=== PATIENT | female | born 1940 | race Caucasian/White ===

== ENCOUNTER 2020-12-16 14:48 | Inpatient (IN) | payer OTHER ==
[2020-12-16 16:19] LABS: ALBUMIN 2.8 g/dL (3.4-5.0); BILIRUBIN - TOTAL 0.3 mg/dL (0.2-1.0); BUN/CREAT RATIO (CALC) 13.3 RATIO; CREATININE 0.98 mg/dL (0.51-0.95); GLOBULIN (CALCULATION) 4.1 g/dL; POTASSIUM 3.5 mmol/L (3.5-5.1); TOTAL PROTEIN 6.9 g/dL (6.4-8.2)
[2020-12-16 16:21] LABS: INR 1.09 (0.9-1.2); PROTHROMBIN TIME 13.4 SECONDS (11.4-13.6); PTT 27.5 SECONDS (22.2-34.7)
[2020-12-16 16:48] LABS: BASOPHIL 1.5 % (0-2); EOSINOPHIL 4.6 % (0-7); HCT 37.4 % (37.0-47.0); HGB 11.4 g/dl (12.5-16.0); LYMPHOCYTE 10.6 % (15-48); MCHC 30.5 g/dL (32.0-36.0); MCV 85.2 fL (78.0-100.0); MPV 10.5 fL (6.0-9.5); NRBC 0; PLT 393 K/uL (150-400); RBC 4.39 M/uL (4.20-5.40); RDW 16.7 % (11.5-14.0); WBC 9.6 K/uL (4.0-10.5)
[2020-12-16 18:13] LABS: BILIRUBIN NEGATIVE (NEGATIVE); BLOOD NEGATIVE Ery/uL (NEGATIVE); CLARITY HAZY (CLEAR); COLOR YELLOW (YELLOW); GLUCOSE (U) NORMAL (NORMAL); LEUKOCYTES NEGATIVE Leu/uL (NEGATIVE); NITRITE NEGATIVE (NEGATIVE); PROTEIN TRACE (LOW) mg/dL (NEGATIVE); SPECIFIC GRAVITY >=1.030 (1.001-1.030); UROBILINOGEN 0.2 mg/dL (0.2-1.0)
[2020-12-16 18:15] LABS: SQUAMOUS EPITHELIAL CELLS RARE
[2020-12-17 06:23] LABS: BASOPHIL 1.4 % (0-2); EOSINOPHIL 6.1 % (0-7); HCT 35.4 % (37.0-47.0); LYMPHOCYTE 15.3 % (15-48); MCH 25.9 pg (25.0-31.0); MCHC 31.1 g/dL (32.0-36.0); MCV 83.3 fL (78.0-100.0); MONOCYTE 12.5 % (0-12); MPV 10.6 fL (6.0-9.5); NEUTROPHIL 64.5 % (41-80); NRBC 0; PLT 355 K/uL (150-400); RBC 4.25 M/uL (4.20-5.40); RDW 16.9 % (11.5-14.0); WBC 8.9 K/uL (4.0-10.5)
[2020-12-17 06:54] LABS: BUN/CREAT RATIO (CALC) 10.8 RATIO; CREATININE 1.02 mg/dL (0.51-0.95); POTASSIUM 3.1 mmol/L (3.5-5.1)
[2020-12-17] MEDS ORDERED: ALLOPURINOL100 MG PO (08:43)
[2020-12-17] MEDS ORDERED: AMIODARONE HCL200 MG PO (08:44)
[2020-12-17] MEDS ORDERED: NORVASC5 MG PO (08:44)
[2020-12-17] MEDS ORDERED: LIPITOR40 MG PO (08:45)
[2020-12-17] MEDS ORDERED: PLAVIX75 MG PO (08:46)
[2020-12-17] MEDS ORDERED: DIAZEPAM 2MG TAB2 MG PO (08:46)
[2020-12-17] MEDS ORDERED: LINZESS145 MCG PO (08:53)
[2020-12-17] MEDS ORDERED: AMARYL 2MG TABLE2 MG PO (08:53)
[2020-12-17] MEDS ORDERED: MELATONIN5 M2 PO (08:54)
[2020-12-17] MEDS ORDERED: TOPROL XL 25MG25 MG PO (08:55)
[2020-12-17] MEDS ORDERED: NITROFURANTOIN100 M2 PO (08:56)
[2020-12-17] MEDS ORDERED: PANTOPRAZOLE SO40 MG PO (08:57)
[2020-12-17] MEDS ORDERED: SEROQUEL 25MG T25 MG PO (08:58)
[2020-12-17] MEDS ORDERED: VENLAFAXINE HCL75 MG PO (08:59)
[2020-12-17] MEDS ORDERED: SENNA8.6 MG PO (09:02)
--- NOTE | 2020-12-17 16:40 | NUR ---
NATHANIEL ASKED TO SPEAK WITH PT. REGARDING PT. CHOICE OF PLACEMENT FOR REHAB. PT. DAUGHTER HAD ADVISED NATHANIEL THAT SHE WOULD LIKE HER MOTHER [facility]. ADVISED PT. OF THIS INFORMATION. SHE AGREED THAT SHE WOULD GO TO [facility]. PT. SIGNED CHOICE FORM AND AFFLIATIONS WERE EXPLAINED.
[2020-12-18 07:19] LABS: BUN/CREAT RATIO (CALC) 9.2 RATIO; CREATININE 1.09 mg/dL (0.51-0.95); POTASSIUM 3.4 mmol/L (3.5-5.1)
[2020-12-18] MEDS ORDERED: LOPRESSOR25 MG PO (10:16)
[2020-12-18] MEDS ORDERED: ASPIRIN EC81 MG PO (10:16)
[2020-12-18] MEDS ORDERED: FUROSEMIDE 40MG40 MG PO (10:16)
[2020-12-18] MEDS ORDERED: DIAZEPAM 2MG TAB2 MG PO (10:21)
== END 2020-12-18 15:12 | DRG 291 ==
LOC: FER 14:48 → FMS 19:09
PROVIDERS: Emergency Medicine; Nurse Practitioner; ADMIT Allergy & Immunology Allergy
DX: I11.0 Hypertensive heart disease with heart failure (principal); I50.31 Acute diastolic (congestive) heart failure; I69.351 Hemiplegia and hemiparesis following cerebral infarction affecting right dominant side; I48.0 Paroxysmal atrial fibrillation; F03.90 Unspecified dementia, unspecified severity, without behavioral disturbance, psychotic disturbance, mood disturbance, and anxiety; Z20.822 Contact with and (suspected) exposure to COVID-19; F41.1 Generalized anxiety disorder; M19.90 Unspecified osteoarthritis, unspecified site; E78.5 Hyperlipidemia, unspecified; F32.9 Major depressive disorder, single episode, unspecified; I65.29 Occlusion and stenosis of unspecified carotid artery; I25.10 Atherosclerotic heart disease of native coronary artery without angina pectoris; Z95.1 Presence of aortocoronary bypass graft; Z90.49 Acquired absence of other specified parts of digestive tract; Z95.5 Presence of coronary angioplasty implant and graft; Z79.84 Long term (current) use of oral hypoglycemic drugs; Z99.81 Dependence on supplemental oxygen; Z98.890 Other specified postprocedural states
CPT/HCPCS: 36415; 70450; 70551; 71045; 80048; 80053; 80061; 81001; 82550; 83880; 84484; 85025; 85610; 85730; 87088; 92507; 93005; 97110; 97162; 97166; 97530-GP; 97535; J1650; J1940; U0002

== ENCOUNTER 2021-01-28 02:47 | Inpatient (IN) | payer OTHER ==
[~2021-01-28 02:47] MED LIST: ALLOPURINOL100 MG PO; AMARYL 2MG TABLE2 MG PO; AMIODARONE HCL200 MG PO; ASPIRIN EC81 MG PO; DIAZEPAM 2MG TAB2 MG PO; FUROSEMIDE 40MG40 MG PO; LINZESS145 MCG PO; LIPITOR40 MG PO; LOPRESSOR25 MG PO; MELATONIN5 M2 PO; NITROFURANTOIN100 M2 PO; NORVASC5 MG PO; PANTOPRAZOLE SO40 MG PO; PLAVIX75 MG PO; SENNA8.6 MG PO; SEROQUEL 25MG T25 MG PO; TOPROL XL 25MG25 MG PO; VENLAFAXINE HCL75 MG PO
[2021-01-28 03:27] LABS: BASOPHIL 0.3 % (0-2); EOSINOPHIL 0.3 % (0-7); HCT 34.7 % (37.0-47.0); HGB 11.3 g/dl (12.5-16.0); LYMPHOCYTE 4.4 % (15-48); MCHC 32.6 g/dL (32.0-36.0); MCV 79.8 fL (78.0-100.0); MONOCYTE 6.4 % (0-12); MPV 10.5 fL (6.0-9.5); NEUTROPHIL 88.3 % (41-80); NRBC 0; PLT 272 K/uL (150-400); RBC 4.35 M/uL (4.20-5.40); RDW 17.3 % (11.5-14.0); WBC 14.4 K/uL (4.0-10.5)
[2021-01-28 03:31] LABS: INR 1.17 (0.9-1.2); PROTHROMBIN TIME 14.1 SECONDS (11.4-13.6); PTT 37.1 SECONDS (22.2-34.7)
[2021-01-28 03:45] LABS: LACTIC ACID 1.2 mmol/L (0.4-1.9)
[2021-01-28 03:46] LABS: ALBUMIN 2.5 g/dL (3.4-5.0); ALKALINE PHOSHATASE 213 U/L (46-116); ALT 33 U/L (14-59); AST 34 U/L (15-37); BILIRUBIN - TOTAL 0.4 mg/dL (0.2-1.0); BUN 19 mg/dL (7-18); BUN/CREAT RATIO (CALC) 20.4 RATIO; CHLORIDE 106 mmol/L (98-107); CO2 (BICARBONATE) 25 mmol/L (21-32); CPK 294 U/L (26-192); CREATININE 0.93 mg/dL (0.51-0.95); GLOBULIN (CALCULATION) 4.5 g/dL; GLUCOSE 157 mg/dL (74-106); POTASSIUM 4.4 mmol/L (3.5-5.1)
[2021-01-28 04:34] LABS: BILIRUBIN NEGATIVE (NEGATIVE); BLOOD TRACE-INTACT Ery/uL (NEGATIVE); CLARITY HAZY (CLEAR); COLOR YELLOW (YELLOW); GLUCOSE (U) NORMAL (NORMAL); LEUKOCYTES 1+ Leu/uL (NEGATIVE); NITRITE POSITIVE (NEGATIVE); PROTEIN TRACE (LOW) mg/dL (NEGATIVE); SPECIFIC GRAVITY 1.025 (1.001-1.030); UROBILINOGEN 0.2 mg/dL (0.2-1.0); pH 5.5 (5.0-9.0)
[2021-01-28 04:38] LABS: BACTERIA 4+; SQUAMOUS EPITHELIAL CELLS RARE; URINARY RBC RARE
[2021-01-28] MEDS ORDERED: ATIVAN0.5 MG PO (09:15)
--- NOTE | 2021-01-28 09:30 | NUR ---
NO FAMILY PRESENT UPON PATIENT ARRIVAL TO MEDSUR FLOOR. PATIENT CRYING/MOANING UPON ARRIVAL AND BECOMES WORSE WITH NURSING CARE. PATIENT HAS GARBLED SPEECH, UNABLE TO UNDERSTAND. PATIENT DOES NOT ANSWER QUESTIONS OR FOLLOW COMMANDS. RN UNABLE TO ACCURATELY COMPLETE ADMISSION DATABASE. RN CONTACTED PHARMACY TO VERIFY HOME MEDS AND LEFT VOICEMAIL FOR PATIENT'S DAUGHTER TO CALL (VIKA GOMEZ [phone])
--- NOTE | 2021-01-28 10:17 | NUR ---
PATIENT'S DAUGHTER RETURNED CALL TO THIS RN. PER DAUGHTER, PATIENT LIVES WITH HER AND WAS JUST DISCHARGED FROM [facility] LAST MONDAY. PER DAUGHTER, PATIENT IS NORMALLY ALERT AND ORIENTED AND HAD BEEN BECOMING INCREASINGLY WEAKER, HAVING INCREASED DIFFICULTY AMBULATING A FEW STEPS AND HAVING OCCASIONAL HALLUCINATIONS. ADVISED DAUGHTER THAT ALL OF THESE SYMPTOMS COULD BE RELATED TO PATIENT HAVING URINARY TRACT INFECTION. DAUGHTER STATES "TAKING CARE OF MOM IS JUST TOO MUCH FOR ME". DAUGHTER IS INTERESTED IN SEEKING ASSISTED PLACEMENT AT [facility] WHERE PATIENT'S RESIDES WELL. RN SPOKE WITH DR SAAVEDRA TO ADVISE OF PATIENT BASELINE AND DAUGHTER'S DESIRE FOR ASSISTED PLACEMENT
[2021-01-28] MEDS ORDERED: K-DUR20 MEQ PO (10:25)
--- NOTE | 2021-01-28 11:15 | NUR ---
RN CALLED TO PATIENT ROOM BY PRECEPTING HIP HOP DANCE INSTRUCTOR. RN STUDENT STATES UNABLE TO AWAKEN PATIENT TO TAKE PO MEDS. THIS RN CALLED PATIENT NAME, PATIENT BRIEFLY OPENED EYES, THEN IMMEDIATELY CLOSED EYES AND WOULD NOT RESPOND. THIS RN TRIED REPEATED STERNAL RUB AND COLD WASHCLOTH AND PATIENT WOULD NOT RESPOND AND DID NOT OPEN HER EYES. VITAL SIGNS OBTAINED. DR SAAVEDRA NOTIFIED OF PATIENT STATUS AND VITAL SIGNS. MD ADVISED TO CONTINUE TO MONITOR PATIENT. PRESCHOOL ASSISTANT PRINCIPAL NOTIFIED.
--- NOTE | 2021-01-28 13:00 | NUR ---
DURING ROUNDING, RN CALLED PATIENT'S NAME, PATIENT OPENED EYES, SMILED, AND SAID "HI". PATIENT WAS ABLE TO STATE HER NAME WHEN ASKED. RN FED PATIENT ABOUT 5-6 BITES OF CLEAR LIQUID FOOD TRAY. WITHIN 10 MINUTES, PATIENT KEPT EYES OPEN BUT WAS UNABLE TO REPEAT HER NAME OR STATE WHERE SHE IS AT. IT'S IF PATIENT IS AWARE OF WHAT SHE WANTS TO SAY BUT IS UNABLE TO VERBALIZE. VITAL SIGNS REMAIN STABLE
[2021-01-28] MEDS ORDERED: SENNA8.6 MG PO (14:31)
[2021-01-28] MEDS ORDERED: ALLOPURINOL100 MG PO (14:32)
--- NOTE | 2021-01-28 15:20 | NUR ---
WHEN RADIOLOGY STAFF WERE BRINGING PATIENT BACK FROM MRI, PATIENT WAS CRYING LOUDLY STATING SHE HAD "TO POOP". PATIENT RESTLESS, CRYING OUT, TRYING TO GET OUT OF BED. THIS RN, A PHOTOGRAPHIC PRESS SCREWMAKER, AND MENAGERIE CARETAKER ASSISTED PATIENT UP TO BEDSIDE COMMODE. WHILE ON BEDSIDE COMMODE, PATIENT CONTINUED TO CRY, LOOKED OUT THE WINDOW AND BEGAN SCREAMING ABOUT A STORM COMING THAT WOULD "KILL ALL OF US". TRIED TO REASSURE PATIENT AND CLOSED THE BLINDS OVER THE WINDOW. PATIENT KEPT REPEATING, "PLEASE DON'T HURT ME". STAFF CONSISTENTLY ATTEMPTED UNSUCCESSFULLY CONSOLE AND REASSURE PATIENT. PATIENT ASSISTED BACK TO BED, CONTINUED TO YELL AND CRY, PULLING AT TELEMETRY WIRES AND CONNOR CATHETER. RN CALLED DR SAAVEDRA TO COME ASSESS PATIENT AND REVIEW OUTSIDE RESIDENTIAL SALES PROFESSIONAL STRIP. DR SAAVEDRA DISCONTINUED PO MEDS,DISCONTINUED TELEMETRY, AND PLACED ORDER FOR SITTER. PRODUCT COORDINATOR NOTIFIED OF SITTER ORDER.
--- NOTE | 2021-01-28 15:59 | NUR ---
01/28/21 Nursing reports patient's daughter to have requested placement at [facility]. Telephone conversation with Kristi Neumann, daughter, [phone]. - Ms. Heredia's spouse resides at [facility]. Ms. Heredia was discharged home from [facility] on 01/21/21. Ms. Neumann lives in the home. - Ms. Heredia has a rw, 3in1, and s. chair. - Ms. Neumann states her mother's care cannot be managed in the home. - [facility] will accept patient back pending [employer] authorization. - Discussed with Dago Almanzar.
--- NOTE | 2021-01-28 17:59 | NUR ---
ON ROUNDING PATIENT NOTED TO BE CALMER, NOT YELLING OR CRYING AT PRESENT. PER REPORT FROM WEB ANALYTICS DEVELOPER, PATIENT DID NOT EAT SUPPER. STAFF STATES THAT WHEN THEY ATTEMPTED TO FEED PATIENT, SHE WOULD SCREAM WHEN THEY GOT NEAR HER. PATIENT CURRENTLY RESTING QUIETLY IN BED.
--- NOTE | 2021-01-29 06:05 | NUR ---
PT SCREAMING TO THE TOP OF HER LUNGS. ENTERED PT'S ROOM, PT LAYING IN BED AWAKE SCREAMING "EMMIE" OVER AND OVER AGAIN. TRIED TO REDIRECT PT. PT ONLY GOT LOUDER. EXPLAINED IT WAS NIGHT TIME AND SHE IS IN THE HOSPITAL. PT STATED SHE DIDN'T CARE THAT SHE WILL SCREAM LOUDER AND WAKE EVERYBODY ELSE UP. MANAGER PERSONNEL SELECTION PENNY DUKES NOTIFIED. RECEIVED ONE TIME DOSE OF 2MG HALODOL. ADMINISTERED HALODOL. PT STILL YELLING. NURSE AIDMariana ARELLANO AT BEDSIDE TO SIT WITH PT. BED ALERT ON, BED IN LOWEST POSITION.
[2021-01-29 06:58] LABS: BASOPHIL 0.9 % (0-2); EOSINOPHIL 3.8 % (0-7); HCT 34.1 % (37.0-47.0); HGB 10.7 g/dl (12.5-16.0); LYMPHOCYTE 9.1 % (15-48); MCHC 31.4 g/dL (32.0-36.0); MONOCYTE 11.5 % (0-12); NEUTROPHIL 74.4 % (41-80); NRBC 0; PLT 258 K/uL (150-400); RBC 4.11 M/uL (4.20-5.40); WBC 11.2 K/uL (4.0-10.5)
[2021-01-29 07:29] LABS: ALBUMIN 2.2 g/dL (3.4-5.0); BILIRUBIN - TOTAL 0.4 mg/dL (0.2-1.0); BUN/CREAT RATIO (CALC) 14.6 RATIO; CREATININE 0.89 mg/dL (0.51-0.95); FT4 (FREE T4) 2.4 ng/dL (0.76-1.46); GLOBULIN (CALCULATION) 4.5 g/dL; POTASSIUM 3.7 mmol/L (3.5-5.1); TOTAL PROTEIN 6.7 g/dL (6.4-8.2)
--- NOTE | 2021-01-29 16:24 | NUR ---
01/29/21 Austin Lopez, will notify the UNit when a response id received from insurance. [facility] will accept as Medicaid pending, however, they may not accept patient until a response is received from insurance. - Ms. Hernandez was requested for [facility] to discuss their Palliative Care program with the family.
[2021-01-29 18:59] LABS: BILIRUBIN NEGATIVE (NEGATIVE); BLOOD NEGATIVE Ery/uL (NEGATIVE); CLARITY CLEAR (CLEAR); COLOR YELLOW (YELLOW); GLUCOSE (U) NORMAL (NORMAL); LEUKOCYTES NEGATIVE Leu/uL (NEGATIVE); NITRITE NEGATIVE (NEGATIVE); PROTEIN NEGATIVE (NEGATIVE); UROBILINOGEN 0.2 mg/dL (0.2-1.0); pH 5.5 (5.0-9.0)
[2021-01-30 06:02] LABS: BASOPHIL 0.9 % (0-2); EOSINOPHIL 6.1 % (0-7); HCT 32.5 % (37.0-47.0); HGB 10.2 g/dl (12.5-16.0); MCH 25.5 pg (25.0-31.0); MCHC 31.4 g/dL (32.0-36.0); MCV 81.3 fL (78.0-100.0); MPV 10.3 fL (6.0-9.5); NEUTROPHIL 68.6 % (41-80); NRBC 0; PLT 264 K/uL (150-400); RDW 17.5 % (11.5-14.0)
[2021-01-30 06:32] LABS: ALBUMIN 2.1 g/dL (3.4-5.0); BILIRUBIN - TOTAL 0.3 mg/dL (0.2-1.0); BUN/CREAT RATIO (CALC) 9.5 RATIO; CREATININE 0.84 mg/dL (0.51-0.95); GLOBULIN (CALCULATION) 4.1 g/dL; POTASSIUM 3.3 mmol/L (3.5-5.1); TOTAL PROTEIN 6.2 g/dL (6.4-8.2)
[2021-02-01 06:19] LABS: BASOPHIL 0.7 % (0-2); EOSINOPHIL 6.6 % (0-7); HCT 35.7 % (37.0-47.0); HGB 11.3 g/dl (12.5-16.0); LYMPHOCYTE 10.7 % (15-48); MCH 25.5 pg (25.0-31.0); MCHC 31.7 g/dL (32.0-36.0); MCV 80.6 fL (78.0-100.0); MONOCYTE 11.3 % (0-12); MPV 10.1 fL (6.0-9.5); NEUTROPHIL 70.4 % (41-80); NRBC 0; PLT 316 K/uL (150-400); RBC 4.43 M/uL (4.20-5.40); RDW 17.5 % (11.5-14.0); WBC 8.8 K/uL (4.0-10.5)
[2021-02-01 06:36] LABS: BUN/CREAT RATIO (CALC) 10.1 RATIO; CREATININE 0.89 mg/dL (0.51-0.95); POTASSIUM 3.8 mmol/L (3.5-5.1)
--- NOTE | 2021-02-01 09:55 | NUR ---
02/01/21 [facility] continues to wait on insurance approval. Updated progress notes have been faxed to Daniela Hernandez.
--- NOTE | 2021-02-01 15:49 | NUR ---
02/01/21 [facility] will accept patient today. Report given to Dr. Hickman and MS Sakshi RN
--- NOTE | 2021-02-02 13:39 | NUR ---
1300 MIDLINE ORDERED FOR PATIENT TO GET IV ANTIBIOTICS IN THE SHELTER FOR A UTI. PROOEDURE EXPLAINED TO PATIENT. PT PREPPED AND DRAPED IN STERILE FASHION. THE PT'S LEFT UPPER ARM BASILIC VEIN WAS VISUALIZED USING THE SITE RITE 6 US MACHINE. A 21 GAUGE GUIDE NEEDLE WAS USED. GOOD BLOOD RETURN WAS NOTED. THE GUIDE WIRE THREADED EASILY. THE NEEDLE WAS REMOVED AND THE MIDLINE CATHETERWAS PLACED OVER THE WIRE. THE WIRE AND SHEATH WERE REMOVED. GOOD BLOOD RETURN WAS NOTED. A CONNECTOR WAS FLUSHED AND PLACED OVER THE END OF THE CATHETER. A STAT LOCK WAS PLACED ON THE CATHETER AND A BIOPATCH WAS PLACED ON TOP OF THE INSERTION SITE. A STERILE TEGADERM WAS PLACED OVER THE MIDLINE CATHETER. PT TOLERATED THE PROCEDURE WELL. PT HAS A 20 G 10 CM POWERGLIDE MIDLINE CATHETER. GOOD FOR 29 DAYS. THIS IS NOT A CENTRAL LINE. REPORT WAS GIVEN TO MARCO ANTONIO LOPEZ R.N. THE PATIENT'S BED ALARM WAS ON, SIDE RAILS UP X 3, CALL LIGHT WITHIN REACH. BED LOWERED TO THE FLOOR FOR SAFETY.
[2021-02-02] MEDS ORDERED: ATIVAN0.5 MG PO (13:56)
[2021-02-02] MEDS ORDERED: INVANZ 1GM1 GM/VIAL IM/IV (13:56)
[2021-02-02] MEDS ORDERED: AMIODARONE HCL200 MG PO (16:04)
== END 2021-02-02 17:45 | DRG 689 ==
LOC: FER 02:47 → FMS 06:08
PROVIDERS: Allergy & Immunology Allergy; Emergency Medicine; Nurse Practitioner; ADMIT Internal Medicine
PROC: 05HY33Z Insertion of Infusion Device into Upper Vein, Percutaneous Approach (ICD-10-PCS; principal; 2021-02-02)
DX: N39.0 Urinary tract infection, site not specified (principal); G93.41 Metabolic encephalopathy; I21.A1 Myocardial infarction type 2; F05 Delirium due to known physiological condition; I69.351 Hemiplegia and hemiparesis following cerebral infarction affecting right dominant side; E05.90 Thyrotoxicosis, unspecified without thyrotoxic crisis or storm; Z66 Do not resuscitate; E78.5 Hyperlipidemia, unspecified; Z20.822 Contact with and (suspected) exposure to COVID-19; F41.1 Generalized anxiety disorder; F32.9 Major depressive disorder, single episode, unspecified; F03.90 Unspecified dementia, unspecified severity, without behavioral disturbance, psychotic disturbance, mood disturbance, and anxiety; L89.152 Pressure ulcer of sacral region, stage 2; E11.9 Type 2 diabetes mellitus without complications; M19.90 Unspecified osteoarthritis, unspecified site; Z95.1 Presence of aortocoronary bypass graft; Z95.5 Presence of coronary angioplasty implant and graft; Z79.899 Other long term (current) drug therapy; Z88.8 Allergy status to other drugs, medicaments and biological substances; W19.XXXA Unspecified fall, initial encounter; Z90.49 Acquired absence of other specified parts of digestive tract; Z90.710 Acquired absence of both cervix and uterus; Z99.81 Dependence on supplemental oxygen
CPT/HCPCS: 36415; 70450; 70551; 71045; 73502; 76536; 80048; 80053; 81001; 81003; 82140; 82550; 83605; 83735; 84145; 84439; 84443; 84481; 84484; 85025; 85610; 85730; 87088; 93005; 96365; 97162; 97166; 97530-GP; 97535; C1751; G0480; J0696; J1335; J1630; J1650; J7030; U0002

== ENCOUNTER 2022-01-31 14:25 | Emergency (ER) | payer OTHER ==
[~2022-01-31 14:25] MED LIST changes: +ATIVAN0.5 MG PO; +AUGMENTIN 500-1 EACH PO; +EFFEXOR-XR 75 M75 MG PO; +INVANZ 1GM1 GM/VIAL IM/IV; +K-DUR20 MEQ PO; +LEVAQUIN250 MG PO; +LEVAQUIN500 MG PO; +PRINIVIL20 MG PO; +PROTONIX 40MG T40 MG PO; +SEROQUEL50 MG PO
== END 2022-01-31 17:10 | disposition home or self-care (01) ==
LOC: FER 14:25
DX: T78.3XXA Angioneurotic edema, initial encounter (principal); R03.0 Elevated blood-pressure reading, without diagnosis of hypertension; I25.2 Old myocardial infarction; Z88.8 Allergy status to other drugs, medicaments and biological substances
CPT/HCPCS: J3490